=== PATIENT | female | born 1975 | race American Indian/Alaskan Native ===

== ENCOUNTER 2016-06-23 08:43 | Outpatient (CLI) | payer MEDICARE ==
[2016-06-23 09:48] LABS: Blood Urea Nitrogen 11 mg/dL (7-17)
[2016-06-23] MEDS ORDERED: NACL ONE (09:54)
--- NOTE | 2016-06-23 10:41 | Cat Scan Report ---
CT scan of chest with IV contrast: Compared to 01/19/16. History: Malignant neoplasm of left breast. Findings Stable postsurgical changes at the right and left breast. No endobronchial or mediastinal mass. No mediastinal hilar or axillary adenopathy. Normal lung parenchyma. No discrete nodularity or acute consolidation. No suspicious bony lesion. Impression: No evidence of metastatic disease.
--- NOTE | 2016-06-23 10:44 | Cat Scan Report ---
CT scan of abdomen and pelvis with IV contrast: Compared to 01/19/16. History: Malignant neoplasm of left breast. Findings: Normal liver spleen pancreas and gallbladder. Normal adrenals. Atrophic small right kidney. Normal left kidney. Normal bladder. No free intraperitoneal fluid or air. No evidence of adenopathy. Gaseous colon with stool in colon. Impression: Essentially negative CT scan of the abdomen and pelvis.
--- NOTE | 2016-06-23 14:53 | Nuclear Medicine Report ---
Nuclear medicine bone scan Findings: The distribution of activity throughout the skeleton is physiologic. Renal activity is seen on the left. No renal activity is seen on the right. Impression: No evidence of metastatic disease. No renal activity is seen on the right side.
== END 2016-06-23 08:44 | disposition home or self-care (01) ==
LOC: NM 08:43
PROVIDERS: ATTEND Internal Medicine Hematology
DX: C50.412 Malignant neoplasm of upper-outer quadrant of left female breast (principal); N26.1 Atrophy of kidney (terminal)
CPT/HCPCS: 36415; 71260; 74177; 78306; 82565; 84520; A9503; Q9967

== ENCOUNTER 2017-01-25 13:29 | Outpatient (CLI) | payer MEDICARE ==
--- NOTE | 2017-01-25 16:50 | Mammography Report ---
Bilateral mammogram, right tomogram, and right breast ultrasound: Patient with left breast cancer and right implant. Routine views are compared to her prior study in December 2012. Dense calcifications are noted posteriorly with surgical clips located above the calcifications and also in the axilla. There is mild distortion of the areola apparently related to reconstruction. The previous skin thickening is no longer apparent. The breast pattern otherwise is mostly fatty and generally unchanged. Implant images, displacement views, and MLO and CC tomograms were obtained. The submuscular implant is intact. There is a 13 mm stellate mass in the superior-lateral breast and a grouping of 3 and possibly 4 smaller stellate masses in the inferior breast slightly medial to the nipple. These were not present on prior exam. No other findings. CAD used. Whole breast ultrasound demonstrates an irregular contoured homogeneously hypoechoic nodule at 9:30 measuring 7.6 mm. In the 5:00 location a single similar nodule is identified measuring 7.5 mm. In the 12:00 location a retroareolar circumscribed homogeneously hypoechoic mass is noted measuring 18 mm in size. Impressions: Several suspicious lesions in the right breast. The ultrasound correlation is not optimal although at least 2 lesions are identified as being suspicious. There is no mammographic correlation to the retroareolar finding. Recommendation: MR of the breast for confirmation of the number and location of positive lesions. Ultrasound-guided biopsy can then be performed as appropriate. BI-RADS CATEGORY: 5 = Malignant ACR BI-RADS MAMMOGRAPHIC CODES: 0 = Needs additional imaging evaluation; 1 = Negative; 2 = Benign; 3 = Probably benign; 4 = Suspicious; 5 = Malignant; 6 = Known biopsy-proven malignancy COMMENT: 1. Dense breast tissue, i.e., adenosis, fibrocystic changes, etc., may obscure an underlying neoplasm. 2. Approximately 10% of cancers are not detected with mammography. 3. A negative mammography report should not delay biopsy if a clinically suspicious mass is present.
== END 2017-01-25 13:30 | disposition home or self-care (01) ==
LOC: MAMMO 13:29
PROVIDERS: ATTEND Internal Medicine Hematology
DX: Z12.31 Encounter for screening mammogram for malignant neoplasm of breast (principal); C50.412 Malignant neoplasm of upper-outer quadrant of left female breast; N64.89 Other specified disorders of breast; Z98.82 Breast implant status; Z80.3 Family history of malignant neoplasm of breast
CPT/HCPCS: 76641; G0202; G0279; 77067

== ENCOUNTER 2017-02-07 18:32 | Emergency (ER) | payer OTHER, MEDICARE ==
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
--- NOTE | 2017-02-07 20:52 | XRay Report ---
FINAL REPORT EXAM: XR SPINE LUMBOSACRAL 2-3V HISTORY: low back pain TECHNIQUE: Three views lumbosacral spine FINDINGS: There is normal lumbar lordosis. There is marked degenerative disc disease with endplate sclerosis at L5/S1. There is marginal osteophyte formation. There is preservation of the remaining disc spaces. There is no definite spondylolisthesis. There is no significant scoliosis. SI joints are open. There are either irregular densities in the stool or uterine calcifications projecting over the lower sacrum. There are clips projecting over the left upper quadrant and left central abdomen. There is no compression fracture. IMPRESSION: Advanced L5/S1 degenerative disc disease with endplate sclerosis and marginal osteophytic change. No spondylolisthesis. The remaining vertebral body heights and disc spaces are maintained. Densities projecting over the lower sacrum may be within the stool or calcified uterine fibroids less likely.
[2017-02-07] MEDS ORDERED: CATAPRES PO ONE (21:42)
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
[2017-02-07] MEDS ORDERED: MOTRIN PO ONE (21:50)
[2017-02-07 22:29] VITALS: BP 154/92
== END 2017-02-07 22:40 | disposition home or self-care (01) ==
LOC: ED 18:32
DX: S13.4XXA Sprain of ligaments of cervical spine, initial encounter (principal); S39.012A Strain of muscle, fascia and tendon of lower back, initial encounter; I10 Essential (primary) hypertension; V89.2XXA Person injured in unspecified motor-vehicle accident, traffic, initial encounter; Y93.9 Activity, unspecified; Y99.9 Unspecified external cause status; Y92.410 Unspecified street and highway as the place of occurrence of the external cause
CPT/HCPCS: 72100; 99283

== ENCOUNTER 2017-02-08 15:09 | Outpatient (CLI) | payer MEDICARE | END 2017-02-08 15:10 | disposition home or self-care (01) | LOC: LABHHL 15:09 | PROVIDERS: ATTEND Surgery | DX: C50.912 Malignant neoplasm of unspecified site of left female breast (principal) | CPT/HCPCS: 88305; 88361 ==

== ENCOUNTER 2017-03-22 07:40 | Day surgery (SDC) | payer MEDICARE ==
[2017-03-22 09:17] LABS: Eosinophils % (Auto) 2.3 % (0.0-4.3); Hemoglobin 13.2 gm/dl (10.1-14.3); Mean Corpuscular HGB Conc 33 % (30-34); Mean Corpuscular Hemoglobin 29 pg (28-32); Mean Corpuscular Volume 88 fl (79-97); Platelet Count 225 K/mm3 (140-440); Red Blood Count 4.52 M/mm3 (3.65-5.03); White Blood Count 6.1 K/mm3 (4.5-11.0)
[2017-03-22 09:34] LABS: INR 0.87 (0.87-1.13)
[2017-03-22 09:35] LABS: Partial Thromboplastin Time 28.3 Sec. (24.2-36.6)
[2017-03-22] MEDS ORDERED: VERSED IV ONE (11:37)
[2017-03-22] MEDS ORDERED: SUBLIMAZE IV ONE (11:37)
[2017-03-22] MEDS ORDERED: NACL 0.9% 500 ML 0 ML ONE (11:43)
--- NOTE | 2017-03-22 12:24 | Short Stay Summary ---
Short Stay Documentation Date of service: 03/22/17 Narrative H&P: breast cancer with liver masses - History Principal diagnosis: breast cancer H&P: obtained from office - Allergies and Medications Current Medications: Allergies No Known Allergies Allergy (Unverified 01/01/13 13:21) Home Medications Medication Instructions Recorded Confirmed Last Taken Type Oxycodone HCl/Acetaminophen 1 each PO Q6HR PRN #10 tablet 01/06/13 03/22/17 Unknown Rx [Percocet 7.5-325 mg] Hydrochlorothiazide [HCTZ] 25 mg PO QDAY 03/22/17 03/22/17 03/22/17 History Tamoxifen Citrate 20 mg PO QDAY 03/22/17 03/22/17 03/21/17 History - Physical exam General appearance: no acute distress Lungs: Clear to auscultation Heart: Regular rate Gastrointestinal: normal, normoactive bowel sounds - Brief post op/procedure progress note Date of procedure: 03/22/17 Pre-op diagnosis: liver mass Post-op diagnosis: same Procedure: CT liver biopsy Anesthesia: other (moderate sedation) Findings: multiple liver masses Surgeon: CLEMENT JONES Estimated blood loss: none Pathology: list (20G core x 4) Specimen disposition: to lab Condition: stable - Disposition Condition at discharge: Good Disposition: DC-01 TO HOME OR SELFCARE Short Stay Discharge Plan Follow up with: PRIMARY CARE, [Primary Care Provider] - 7 Days
--- NOTE | 2017-03-22 12:35 | Cat Scan Report ---
CT BIOPSY LIVER History: Breast cancer, new liver lesions Description of procedure: Informed consent was obtained. Sterile technique was utilized. 1% lidocaine for skin anesthesia. Moderate sedation was accomplished with Versed and fentanyl. The patient was sedated for 15 minutes. Independent cardiorespiratory monitoring by RN. Intraobserver time was [address] guidance, a 19-gauge introducer needle was advanced to the leading edge of a 2 cm right hepatic lobe hypodense lesion. 4 separate 2 cm 20-gauge core biopsies were obtained for pathology. Samples were deemed adequate by the pathologist on site. No complications. Impression: Successful CT-guided biopsy of a 2 cm right hepatic lobe lesion.
[2017-03-22 15:20] VITALS: BP 119/72
== END 2017-03-22 15:40 | disposition home or self-care (01) ==
LOC: CATHLABREC 07:40 → EDSTATUS 08:30 → CATHLABREC 15:40
PROVIDERS: ATTEND Internal Medicine Hematology
DX: K76.9 Liver disease, unspecified (principal); Z85.3 Personal history of malignant neoplasm of breast; Z79.899 Other long term (current) drug therapy
CPT/HCPCS: 36415; 47000; 77012; 85025; 85610; 85730; 88172; 88173; 88307; 88341; 88342; 99156; J2250; J3010; 88333; J7040

== ENCOUNTER 2017-04-07 10:49 | Day surgery (SDC) | payer MEDICARE ==
[2017-04-07 11:39] LABS: Basophils % (Auto) 0.3 % (0.0-1.8); Eosinophils % (Auto) 0.1 % (0.0-4.3); Hematocrit 38.4 % (30.3-42.9); Hemoglobin 12.8 gm/dl (10.1-14.3); Mean Corpuscular HGB Conc 34 % (30-34); Mean Corpuscular Hemoglobin 30 pg (28-32); Mean Corpuscular Volume 90 fl (79-97); Platelet Count 226 K/mm3 (140-440); Red Blood Count 4.28 M/mm3 (3.65-5.03); Red Cell Distribution Width 13.5 % (13.2-15.2); White Blood Count 12.3 K/mm3 (4.5-11.0)
[2017-04-07 11:49] LABS: INR 0.86 (0.87-1.13)
[2017-04-07 11:50] LABS: Partial Thromboplastin Time 26.3 Sec. (24.2-36.6)
[2017-04-07 11:54] LABS: Anion Gap 20 mmol/L; BUN/Creatinine Ratio 17; Blood Urea Nitrogen 19 mg/dL (7-17); Calcium 9.6 mg/dL (8.4-10.2); Carbon Dioxide 25 mmol/L (22-30); Chloride 100.4 mmol/L (98-107); Glucose 90 mg/dL (65-100); Potassium 4.2 mmol/L (3.6-5.0); Sodium 141 mmol/L (137-145)
--- NOTE | 2017-04-07 14:08 | Cat Scan Report ---
FINAL REPORT PROCEDURE: CT ANGIO CHEST TECHNIQUE: Computerized tomographic angiography of the chest was performed after the IV injection of iodinated nonionic contrast including image processing. The image data was postprocessed using 2-dimensional multiplanar reformatted (MPR) and 3-dimensional (MIP and/or volume rendered) techniques. HISTORY: brain mets COMPARISON: None FINDINGS: Heart and pericardium: Normal. Thoracic aorta: Normal. Pulmonary vasculature: Normal. Lymph nodes: No enlarged thoracic lymph nodes. Lungs: Right basilar consolidation. Pleural space: Small right pleural effusion. Musculoskeletal structures: Right breast prosthesis in place. Peripherally calcified left breast/chest wall nodules. Upper abdominal structures: Innumerable hypodense lesions scattered throughout the liver suggestive of metastatic disease. Atrophic hydronephrotic right kidney. 11 millimeter right adrenal nodule. Right chest port in place.. IMPRESSION: Multiple metastases to the liver as well as likely of the right adrenal gland. Right basilar consolidation, atelectasis and/or infiltrate. Small right pleural effusion. Atrophic hydronephrotic right kidney.
--- NOTE | 2017-04-07 14:10 | Short Stay Summary ---
Short Stay Documentation Date of service: 04/07/17 - History Past Medical History: cancer (Bilateral Breast Ca, now metastatic) - Allergies and Medications Current Medications: Allergies No Known Allergies Allergy (Verified 04/07/17 11:07) Home Medications Medication Instructions Recorded Confirmed Last Taken Type Oxycodone HCl/Acetaminophen 1 each PO Q6HR PRN #10 tablet 01/06/13 04/07/17 Rx [Percocet 7.5-325 mg] 1 Hydrochlorothiazide [HCTZ] 25 mg PO QDAY 03/22/17 04/07/17 04/06/17 History 25mg RX: Tamoxifen Citrate 20 mg PO QDAY 03/22/17 04/07/17 04/06/17 History 20mg - Physical exam General appearance: no acute distress - Brief post op/procedure progress note Date of procedure: 04/07/17 Pre-op diagnosis: Breast Ca, pleural effusion Post-op diagnosis: same Procedure: US guided right thoracentesis Anesthesia: local Findings: 520 cc yellow serous fluid removed. Surgeon: FAROOQ CLEANING Estimated blood loss: none Specimen disposition: to lab Condition: stable (Post proc CXR ordered.) Short Stay Discharge Plan Follow up with: HECTOR MENDIOLA MD [Primary Care Provider] - 7 Days
[2017-04-07 14:26] VITALS: BP 143/108
--- NOTE | 2017-04-07 14:39 | Ultrasound Report ---
ULTRASOUND THORACENTESIS INDICATION: Right pleural effusion. Metastatic breast cancer. COMPARISON: None similar. FINDINGS: Ultrasound guided right thoracentesis performed. Written informed consent obtained after explaining the risks and benefits. Patient brought in the ultrasound room. An appropriate skin site marked. Using standard sterile precautions and 1% lidocaine for local anesthesia, 5 [place] Yueh catheter advanced into the pleural fluid. Total of approximately 520 cc of yellow serous fluid obtained with sample sent to the lab. Catheter removed and hemostasis achieved. Patient returned to room. No immediate complications. CONCLUSION: Status post right thoracentesis, as described. A post procedure chest x-ray ordered. Dr. Reyes present for and performed the entire procedure. Thank you for the opportunity to participate in this patient's care.
--- NOTE | 2017-04-07 14:44 | XRay Report ---
PORTABLE CHEST INDICATION: Post right thoracentesis. Breast cancer. COMPARISON: None similar. FINDINGS: Portable, frontal chest radiograph demonstrates mild right basilar opacity/effusion, partly obscuring the right hemidiaphragm. Approximately 5.5 cm right lung base mass or consolidation may also be partially imaged. No pneumothorax. Limited inspiration with mild exaggerated heart size. Grossly clear left lung. Right chest port tip along the distal SVC. Left axillary surgical clips. Intact bones. CONCLUSION: No evidence of right pneumothorax with right basilar opacity/small effusion and few iatrogenic changes, as above. Thank you for the opportunity to participate in this patient's care.
== END 2017-04-07 15:00 | disposition home or self-care (01) ==
LOC: CATHLABREC 10:49 → EDSTATUS 12:00 → CATHLABREC 15:00
PROVIDERS: ATTEND Internal Medicine Hematology
DX: J90 Pleural effusion, not elsewhere classified (principal); C50.412 Malignant neoplasm of upper-outer quadrant of left female breast; Z79.01 Long term (current) use of anticoagulants
CPT/HCPCS: 32555; 36415; 71010; 71275; 80048; 85025; 85610; 85730; 87116; Q9967; 88112; 88305; 88341; 88342